=== PATIENT | male | born 1970 | race Caucasian/White ===

== ENCOUNTER 2021-03-04 17:27 | Emergency (ER) | payer BC, SELFPAY ==
[2021-03-04 17:29] VITALS: BP 148/103; PULSE 105; RESP 16; TEMP 37.3; O2SAT 95; BMI 45.3
--- NOTE | 2021-03-04 17:41 | CT_ITS ---
STUDY: CT ABDOMEN AND PELVIS WITHOUT CONTRAST REASON FOR EXAM: Male, 50 years old. Pain, rule out kidney stones RADIATION DOSAGE (If Supplied By Facility): CTDIvol = ( 23.81 ) mGy, DLP = ( 1374.06 ) mGycm TECHNIQUE: Transaxial images were obtained from the dome of the diaphragm to the symphysis pubis without oral contrast, and without intravenous contrast. Sagittal and coronal images were reconstructed. Individualized dose optimization techniques were used for this CT. COMPARISON: None. FINDINGS: Lung bases clear. Marked diffuse hepatic steatosis noted. Unremarkable spleen, pancreas, adrenals, and gallbladder on this unenhanced study. A 1.0 cm stone at the left UPJ causing mild to moderate left-sided hydronephrosis. Multiple nonobstructing stones in the bilateral kidneys measuring up to 0.5 cm in diameter. Status post appendectomy. Bowel loops nonobstructed. Distal colonic diverticulosis. No acute diverticulitis. No free air or free fluid. No adenopathy. Mild vascular calcification with no abdominal aortic aneurysm. Small fat-containing umbilical hernia. Sections through the pelvis demonstrate borderline enlargement of the prostate. Urinary bladder incompletely distended. Tiny fat-containing left inguinal hernia is seen. There is a bone island in the L4 vertebral body. Mild multilevel thoracolumbar spondylosis is noted. CT/Abdomen/Pelvis without Cont IMPRESSION: A 1.0 cm stone at the left UPJ causing moderate left-sided hydronephrosis. Multiple nonobstructing stones in the bilateral kidneys measuring up to 0.5 cm. Marked diffuse hepatic steatosis. Distal colonic diverticulosis. No acute diverticulitis. Electronically Signed: John Chopra MD at 18:44 EDT Tel , Service support ,
--- NOTE | 2021-03-04 17:42 | EX.ED.DYSGE1 ---
HPI History of Present Illness Chief Complaint: Abd Pain Detail of Chief Complaint: Left flank pain Informant: patient Onset/Context/Timing Onset: Yesterday Context: Gradual Onset Timing: Waxes and wanes Current Severity: Mild Maximum Severity: Moderate Narrative Narrative: Patient present secondary left flank pain. He states yesterday he got sharp pain in his left back. He thought he likely had another kidney stone. 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 He states it occasionally will shoot toward the groin. He did vomit x1 which he said may be secondary to pain or taking too much ibuprofen at home. [facility] Medical History (Updated 03/04/21 @ 19:[address] Makenzie De Souza MD) Appendicitis Hypertension Kidney stone Home Medications hydrocodone-acetaminophen 1 tab PO Q6H PRN 3 Days #14 tab 03/04/21 [Rx Last Taken Unknown] ketorolac 10 mg PO Q6H PRN 4 Days #14 tab 03/04/21 [Rx Last Taken Unknown] lisinopril 30 mg PO DAILY 03/04/21 [History Last Taken Unknown] ondansetron 4 mg PO Q8H PRN #10 tab 03/04/21 [Rx Last Taken Unknown] verapamil 240 mg PO DAILY 03/04/21 [History Last Taken Unknown] Allergy/AdvReac Type Severity Reaction Status Date / Time No Known Allergies Allergy Verified 03/04/21 17:28 Social History Smoking Status: Former smoker ROS ROS ED Constitutional Constitutional ED: Denies chills or fever(s) Eyes Eyes: Denies change in vision ENT ENT ED: Denies sore throat Cardiovascular Cardiovascular: Denies chest pain Respiratory/Chest Respiratory/Chest: Denies cough or dyspnea Gastrointestinal Gastrointestinal: Reports abdominal pain and vomiting; Denies diarrhea or nausea Genitourinary Genitourinary ED: Denies dysuria or hematuria Musculoskeletal Musculoskeletal: Reports back pain Integumentary Denies rash Neurologic Neurologic: Denies headache(s) or weakness Psychiatric Psychiatric: Denies anxiety or depression Endocrine Endocrinology: Denies polydipsia or polyuria Allergic/Immunologic Allergic/Immunologic ED: Denies urticaria EXAM Physical Exam Const Vital Signs: 03/04/21 17:29 Temperature 99.1 F Temperature Source Temporal Pulse Rate 105 H Respiratory Rate 16 Blood Pressure 148/103 H Blood Pressure Mean 118 Pulse Ox 95 Oxygen Delivery Method Room Air Positive well nourished and well developed General Appearance ED: well developed HEENT Reports normocephalic and head/scalp atraumatic Eyes PERRL and EOMs intact bilaterally Neck supple Chest Wall inspection of chest normal and palpation of chest normal Resp normal respiratory effort and clear to auscultation bilaterally Cardio regular rate and regular rhythm GI normal to inspection, nondistended, normoactive bowel sounds and non-tender Palpation: soft Back/Spine no CVA tenderness Extremity normal to inspection Neuro oriented x3 and no sensory deficits noted Sensorium / Orientation: alert Motor Exam: strength 5/5 throughout Psych mental status grossly normal Skin no rashes or lesions noted MDM MDM MDM Narrative Medical decision making narrative: Patient was given morphine, Toradol, Zofran, and IV fluids. Lab work, urinalysis, and CT flank are obtained. Lab Data Attestation: I reviewed the patient's lab results. Labs: Laboratory Results - last 24 hr 03/04/21 03/04/21 03/04/21 17:50 17:50 18:03 WBC 9.7 RBC 5.10 Hgb 14.6 Hct 43.8 MCV 85.9 MCH 28.6 MCHC 33.3 RDW Std Deviation 39.9 RDW Coeff of Ross 12.8 Plt Count 163 MPV 10.8 Immature Gran % (Auto) 0.500 Neut % (Auto) 70.6 H Lymph % (Auto) 16.1 L Clayton % (Auto) 11.1 H Eos % (Auto) 1.2 Baso % (Auto) 0.5 Absolute Neuts (auto) 6.9 Absolute Lymphs (auto) 1.57 Nucleated RBC % 0 Sodium 136 Potassium 4.0 Chloride 101 Carbon Dioxide 28.0 Anion Gap 7 BUN 14 Creatinine 1.46 H Estim Creat Clear Calc 65.19 Est GFR (MDRD) Af Amer 66 Est GFR (MDRD) Non-Af 54 L BUN/Creatinine Ratio 9.6 L Glucose 126 H Calcium 9.7 Urine Color Yellow Urine Clarity Clear Urine pH 6.0 Ur Specific [place] 1.030 Urine Protein Negative Urine Glucose (UA) Normal Urine Ketones Negative Urine Occult Blood 25 H Urine Nitrite Negative Urine Bilirubin Negative Urine Urobilinogen Normal Ur Leukocyte Esterase Negative Urine RBC 0 SEEN Urine WBC 0 SEEN Ur Squamous Epith Cells 0 SEEN Urine Bacteria 0 SEEN Urine Mucus 0 SEEN Radiography Diagnostic Testing: Radiology Impression Abdomen/Pelvis CT 03/04/21 17:41 IMPRESSION: A 1.0 cm stone at the left UPJ causing moderate left-sided hydronephrosis. Multiple nonobstructing stones in the bilateral kidneys measuring up to 0.5 cm. Marked diffuse hepatic steatosis. Distal colonic diverticulosis. No acute diverticulitis. Electronically Signed: John Chopra MD at 18:44 EDT Tel , Service support , Treatment and Re-Evaluation Comments:: On repeat evaluation patient states his pain is completely resolved. He does have a significantly sized kidney stone at the left UPJ. We did discuss this and likelihood that he will need surgical intervention for this. There is no urology coverage this weekend. Because patient's pain is completely resolved at this time we will be sending him home with pain medication. He is advised to call Dr. Snell's office first thing Saturday morning for an appointment. I was unable to contact him this weekend to help verify close follow-up. If the patient worsens he is to return to the emergency room and we can transfer him for appropriate urology care if needed. Discharge Plan Triage Chief Complaint: Abd Pain ED Provider: Makenzie De Souza Dx/Rx/DC Orders Clinical Impression: Ureterolithiasis Instructions: ED Kidney Stone w/ Colic Prescriptions: New hydrocodone-acetaminophen 5-325 mg tablet 1 tab PO Q6H PRN (Reason: pain) 3 Days Qty: 14 RF: 0 ketorolac 10 mg tablet 10 mg PO Q6H PRN (Reason: pain) 4 Days Qty: 14 RF: 0 ondansetron 4 mg tablet,disintegrating 4 mg PO Q8H PRN (Reason: nausea and vomiting) Qty: 10 RF: 0 No Action lisinopril 30 mg Tablet 30 mg PO DAILY RF: 0 verapamil 240 mg Tablet Extended Release 240 mg PO DAILY RF: 0 Referrals: BAYRON WONG [Other] Ryne Snell MD [STAFF PHYSICIAN] - 2 Days Disposition Disposition: Home, self care
[2021-03-04 17:56] LABS: Absolute Lymphocyte Count 1.57 X10^3/uL (0.83-4.51); Absolute Neutrophil Count 6.9 X10^3/uL (2.0-7.7); Basophil# 0.05 X10^3/uL; Basophil% 0.5 % (0-1); Eosinophil# 0.12 X10^3/uL; Eosinophils% 1.2 % (0-5); Hematocrit 43.8 % (40-54); Hemoglobin 14.6 g/dL (13.0-16.5); Lymphocyte # 1.57 X10^3/ul (0.83-4.51); Lymphocyte % 16.1 % (19-41); Mean Corp Hgb Conc 33.3 g/dL (32-36); Mean Corpuscular Hgb 28.6 pg (27.0-32.0); Mean Corpuscular Volume 85.9 fL (80-94); Mean Platelet Vol. 10.8 fl (6.2-12.0); Monocyte# 1.08 X10^3/uL; Monocyte% 11.1 % (0-10); NRBC Flagged by Analyzer 0 % (0-5); Neutrophil # 6.87 X10^3/uL (2.7-7.7); Neutrophil % 70.6 % (47-70); Platelet Count 163 K/mm3 (150-450); RBC Distribution Width CV 12.8 % (11.6-14.6); RBC Distribution Width SD 39.9 fl (35.1-43.9); White Blood Count 9.7 K/mm3 (4.4-11.0)
[2021-03-04] MEDS: Ketorolac 30 MG/ML Syringe IV (18:00)
[2021-03-04] MEDS: 0.9% Normal Saline 1,000 ML 250 ML IV (18:00)
[2021-03-04] MEDS: Ondansetron 4 MG/2 ML Vial IV (18:00)
[2021-03-04] MEDS: Morphine 4 MG/ML Syringe IV (18:00)
[2021-03-04 18:09] LABS: Bacteria 0 SEEN /hpf (None Seen); Mucous, Urine 0 SEEN /hpf (<or=2+); Red Blood Cells-Urine 0 SEEN /hpf (0-5); Squamous Epithelial Cells - UA 0 SEEN /hpf (0-5); White Blood Cells 0 SEEN /hpf (0-5)
[2021-03-04 18:09] LABS: Anion Gap 7 (5-15); BUN 14 mg/dL (7-18); BUN/Creat Ratio 9.6 RATIO (10-20); Calcium,Total 9.7 mg/dL (8.5-10.1); Chloride 101 mmol/L (98-107); Creatinine, Serum 1.46 mg/dL (0.70-1.30); EST Glomerular Filtration Rate 54 mL/min (>60); Est Glom Filt Rate - Afr Amer 66 mL/min (>60); Estimated Creatinine Clearance 65.19 ml/min; Glucose 126 mg/dL (74-106); Sodium Level 136 mmol/L (136-145)
[2021-03-04 18:10] LABS: Color, Urine Yellow (Yellow); Glucose, Dipstick Normal (Normal); Ketone-Dipstick Negative (Negative); Leukocyte Esterase-Dipstick Negative /ul (Negative); Nitrite-Dipstick Negative (Negative); Occult Blood-Urine 25 /ul (Negative); Protein-Dipstick Negative (Negative); Urine Bilirubin Dipstick Negative (Negative); Urine Clarity Clear (Clear); Urine Urobilinogen Normal (Normal)
[2021-03-04 19:19] VITALS: BP 135/90
== END 2021-03-04 20:00 | disposition home or self-care (01) ==
PROVIDERS: Emergency Provider Emergency Medicine
DX: N13.2 Hydronephrosis with renal and ureteral calculous obstruction (principal); K76.0 Fatty (change of) liver, not elsewhere classified; K57.30 Diverticulosis of large intestine without perforation or abscess without bleeding; Z87.891 Personal history of nicotine dependence; I10 Essential (primary) hypertension; Z79.899 Other long term (current) drug therapy
CPT/HCPCS: 74176; 80048; 81001; 85025; 96361; 96374; 96375; 99282; J7030; A4216; J2405